=== PATIENT | female | born 1995 | race Caucasian/White ===

== ENCOUNTER 2020-08-16 09:03 | Emergency (ER) | payer OTHER, SELFPAY ==
--- NOTE | 2020-08-16 09:13 | PC.NURSE ---
in br to obtain ua spec.
--- NOTE | 2020-08-16 09:25 | ED.GENADULT ---
HPI - General Adult General Chief complaint: Urogenital-Female Stated complaint: UTI Time Seen by Provider: 08/16/20 09:19 Source: patient and RN notes reviewed Mode of arrival: ambulatory Limitations: no limitations History of Present Illness HPI narrative: 25-year-old female presents with urinary complaints for the past 5 days. Dysuria consist of right lower abdominal pain, burning, frequency, and urgency. Marisol reports she is 6months post and has been having urinary problems since giving vaginal childbirth, symptoms increased over the past 24 hours. No treatment.? Denies fever or chills. No significant pelvic pain. No vaginal discharge.? No concerns for STDs. Exacerbating factors urinating.? Denies hematuria or vaginal bleeding. Denies being , LMP.? No flank pain. Denies nausea and vomiting.? Tolerating liquids well.? Remains active. The patient reports she have not been diagnosed with COVID-19. The patient reports she is not waiting for the results of a COVID-19 lab test. The patient reports she do not have fever, chills, weakness, or fatigue. The patient reports she do not have a new or worsening cough or shortness of breath. Denies chest pain. The patient reports she do not have any rhinorrhea, congestion, sore throat, loss of taste, and diarrhea. Denies recent traveling. Denies concerns for COVID-19 or exposures been home with limited outdoor exposure except for essential household needs and return home. At this time, patient is not suspected of having COVID-19. Some parts of this dictation were generated by voice recognition software and may contain typographical and/or grammatical inaccuracies. Related Data Home Medications Medication Instructions Recorded Confirmed PNV,calcium [id number] acid tablet 08/16/20 [ Vitamin Plus Low Iron] levothyroxine 08/16/20 Allergies Allergy/AdvReac Type Severity Reaction Status Date / Time No Known Allergies Allergy Verified 10/15/14 13:35 Review of Systems Review of Systems: Narrative: CONSTITUTIONAL: Denies fever, chills, sweats. EYES: Denies visual changes, redness, discharge. ENT: Denies rhinorrhea, congestion, sore throat, otalgia. CARDIOVASCULAR: Denies chest pain, palpitations, edema. RESPIRATORY: Denies dyspnea, wheezing, cough. GASTROINTESTINAL: Complains of RLQ. Denies nausea, vomiting, diarrhea. GENITOURINARY: Complains of dysuria (burning, frequency, and urgency). Denies hematuria, abnormal discharge. SKIN: Denies rash or itching. MUSCULOSKELETAL: Denies acute back pain, joint pain, or myalgia. NEUROLOGIC: Denies numbness or focal weakness. PSYCHIATRIC: Denies anxiety or depression. All systems reviewed & are unremarkable except as noted in HPI and below. PMFSH Past Medical History Medical History (Updated 08/16/20 @ 09:33 by DIANDRA Haas) Hypothyroidism Normal vaginal delivery Surgical History Surgical History (Updated 08/16/20 @ 09:29 by DIANDRA Haas) No significant past surgical history Family History Family History (Updated 08/16/20 @ 09:30 by DIANDRA Haas) Father Hypertension Mother Hypertension Social History Social History (Updated 08/16/20 @ 09:30 by DIANDRA Haas) Smoking status: Former smoker Tobacco type: cigarettes Second hand tobacco smoke exposure: No Smoking end date: 08/18/18 Alcohol intake: current Alcohol use details: occasionally Substance use: never Living arrangements: with family Occupation/Education: unemployed Gender identity (if verbalized by the patient): Female Sexual Orientation (if Verbalized by the Patient): Straight or Heterosexual Comments At time of signature, agree with nurse past medical, surgical, social, and family history.? There is no relevant family history pertinent to the presenting complaint. Exam Narrative: Exam Narrative: GENERAL: This is a well-nourished, well-developed patient,
[2020-08-16 09:28] VITALS: BP 133/81; PULSE 62; RESP 16; TEMP 36.9; O2SAT 100
--- NOTE | 2020-08-16 10:02 | PC.NURSE ---
was in br at 0928 and was able to collect urine spec., was in br at 0948, dc at 0908
== END 2020-08-16 09:58 | disposition home or self-care (01) ==
PROVIDERS: Emergency Provider Nurse Practitioner Family; PCP Family Medicine
DX: R30.0 Dysuria (principal); E03.9 Hypothyroidism, unspecified; Z87.891 Personal history of nicotine dependence
CPT/HCPCS: 81003; 87077; 87086; 87088; 87186; 99203; G0463

== ENCOUNTER 2021-08-30 08:56 | Outpatient (CLI) | payer OTHER, SELFPAY ==
--- NOTE | 2021-08-30 11:00 | NEURO_ITS ---
Impression: # Complains of numbness and pain in both hands. # Normal nerve conduction study. # Normal needle/EMG exam. # Clinical correlation recommended. Nerve Conduction Studies Anti Sensory Summary Table Stim Site NR Peak (ms) P-T Amp (?V) Site1 Site2 Delta-P (ms) Dist (cm) Crispin (m/s) Left Median Anti Sensory (2-3nd Digit) Wrist 3.0 48.0 Wrist 2-3nd Digit 3.0 14.0 47 Wrist 2.9 53.7 Wrist 2-3nd Digit 3.0 14.0 47 Right Median Anti Sensory (2-3nd Digit) Wrist 2.8 37.7 Wrist 2-3nd Digit 2.8 14.0 50 Wrist 2.7 53.5 Wrist 2-3nd Digit 2.8 14.0 50 Left Radial Anti Sensory (Base 1st Digit) Wrist 2.1 17.1 Wrist Base 1st Digit 2.1 0.0 Right Radial Anti Sensory (Base 1st Digit) Wrist 2.2 10.3 Wrist Base 1st Digit 2.2 0.0 Left Ulnar Anti Sensory (5th Digit) Wrist 2.4 55.0 Wrist 5th Digit 2.4 14.0 58 Right Ulnar Anti Sensory (5th Digit) Wrist 2.2 33.6 Wrist 5th Digit 2.2 14.0 64 Motor Summary Table Stim Site NR Onset (ms) O-P Amp (mV) Site1 Site2 Delta-0 (ms) Dist (cm) Crispin (m/s) Left Median Motor (Abd Poll Brev) Wrist 3.0 2.9 Elbow Wrist 4.1 26.0 63 Elbow 7.1 5.2 Right Median Motor (Abd Poll Brev) Wrist 2.8 3.0 Elbow Wrist 4.2 27.0 64 Elbow 7.0 3.2 Left Ulnar Motor (Abd Dig Minimi) Wrist 2.5 6.6 A Elbow Wrist 4.8 29.0 60 A Elbow 7.3 5.3 Right Ulnar Motor (Abd Dig Minimi) Wrist 2.6 6.2 A Elbow Wrist 4.4 27.0 61 A Elbow 7.0 4.9 F Wave Studies NR F-Lat (ms) L-R F-Lat (ms) Left Median (Mrkrs) (Abd Poll Brev) 26.90 0.12 Right Median (Mrkrs) (Abd Poll Brev) 26.78 0.12 Left Ulnar (Mrkrs) (Abd Dig Min) 27.23 0.49 Right Ulnar (Mrkrs) (Abd Dig Min) 27.72 0.49 EMG Side Muscle Nerve Root Ins Act Fibs Amp Dur Recrt Comment Right 1stDorInt Ulnar C8-T1 Nml Nml Nml Nml Nml Right Ext Indicis Radial (Post Int) C7-8 Nml Nml Nml Nml Nml Right Ext Digitorum Radial (Post Int) C7-8 Nml Nml Nml Nml Nml Right BrachioRad Radial C5-6 Nml Nml Nml Nml Nml Right PronatorTeres Median C6-7 Nml Nml Nml Nml Nml Right Abd Poll Brev Median C8-T1 Nml Nml Nml Nml Nml Left 1stDorInt Ulnar C8-T1 Nml Nml Nml Nml Nml Left Ext Indicis Radial (Post Int) C7-8 Nml Nml Nml Nml Nml Left Ext Digitorum Radial (Post Int) C7-8 Nml Nml Nml Nml Nml Left BrachioRad Radial C5-6 Nml Nml Nml Nml Nml Left PronatorTeres Median C6-7 Nml Nml Nml Nml Nml Left Abd Poll Brev Median C8-T1 Nml Nml Nml Nml Nml MTDD
== END 2021-08-30 08:57 | disposition home or self-care (01) ==
LOC: ANHNEURO 08:59
PROVIDERS: PCP Family Medicine; Visit Provider Internal Medicine Gastroenterology
DX: R20.2 Paresthesia of skin (principal)
CPT/HCPCS: 95886; 95911

== ENCOUNTER 2022-05-01 08:16 | Emergency (ER) | payer OTHER, SELFPAY ==
[2022-05-01 08:30] VITALS: BP 126/82; PULSE 78; RESP 18; TEMP 37.2; O2SAT 100
--- NOTE | 2022-05-01 09:01 | ED.URI ---
HPI - URI/Sore Throat General Chief Complaint: Upper Respiratory Infection Stated Complaint: sore throat Time Seen by Provider: 05/01/22 09:01 Source: RN notes reviewed and old records reviewed Mode of arrival: ambulatory Limitations: no limitations History of Present Illness HPI Narrative: 27-year-old female presents to [facility] care with complaints of sinus congestion and drainage since weekend with complaints of sore throat since yesterday. Patient reports she has been taking [place] cold and flu, allergy medicine and also some nasal spray. She reports that her daughter has been sick and was diagnosed with sinus infection yesterday placed on antibiotics. 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 MD elicited complaint: sore throat Pertinent past history: other (strep throat history) Onset (ago): day(s) (1) Treatments prior to arrival: cold medicine and other (sinus medication and also nasal spray) Related Data Home Medications Medication Instructions Recorded Confirmed levothyroxine 75 mcg tablet 08/16/20 Allergies Allergy/AdvReac Type Severity Reaction Status Date / Time No Known Allergies Allergy Verified 05/01/22 08:35 Review of Systems Review of Systems: CONSTITUTIONAL: Denies fever, chills, or sweats. EYES: Denies visual changes, redness, or discharge. ENT: Positive rhinorrhea, congestion, sore throat, no otalgia. CARDIOVASCULAR: Denies chest pain, palpitations, or edema. RESPIRATORY: Denies cough or dyspnea. GASTROINTESTINAL: Denies abdominal pain, nausea, vomiting, or diarrhea. GENITOURINARY: Denies dysuria or hematuria. SKIN: Denies rash or itching. MUSCULOSKELETAL: Denies back pain, joint pain, positive body aches NEUROLOGIC: Denies headache, numbness, or weakness. PSYCHIATRIC: Positive history anxiety or depression. All systems reviewed & are unremarkable except as noted in HPI and below PMFSH Past Medical History Medical History Hypothyroidism Normal vaginal delivery Surgical History Surgical History No significant past surgical history Family History Family History Father Hypertension Mother Hypertension Social History Social History (Reviewed 05/01/22 @ 09:02 by GWEN Love Smoking status: Former smoker Tobacco type: cigarettes Second hand tobacco smoke exposure: No Smoking end date: 08/18/18 Alcohol intake: current Alcohol use details: occasionally Substance use: never Gender identity (if verbalized by the patient): Female Sexual Orientation (if Verbalized by the Patient): Straight or Heterosexual Comments At time of signature, agree with nursing past medical, surgical, social and family history. There is no relevant family history pertinent to the presenting complaint Exam Narrative: GENERAL: ill-appearing, well-nourished, and in no acute distress. HEAD: Normocephalic, atraumatic. EYES: PERRLA and EOMI. ENT: Nares red with clear rhinorrhea no epistaxis. Mucous membranes moist. TMs normal with good light reflex throat red with tonsils swollen and red uvula red and swollen painful swallowing NECK: Supple. Lymphadenopathy CHEST: Clear to auscultation. No respiratory distress. SaO2 100% on room air HEART: Regular rate and rhythm. No murmur heard. Normal peripheral pulses. ABDOMEN: Soft, nontender, nondistended, normal active bowel sounds. EXTREMITIES: Normal range of motion. No edema. SKIN: Warm, dry, no rash. NEURO: No focal deficits. Alert and oriented x3. Course Course Level of Care: Express Care Visit Vital Signs Vital signs: Vital Signs Temperature 37.2 C 05/01/22 08:30 Pulse Rate 78 05/01/22 08:30 Respiratory Rate 18 05/01/22 08:30 Blood Pressure 126/82 05/01/22 08:30 Pulse Oximetry 100 05/01/22 08:30 Oxygen Del
== END 2022-05-01 09:22 | disposition home or self-care (01) ==
PROVIDERS: Emergency Provider Registered Nurse
DX: J03.90 Acute tonsillitis, unspecified (principal); E03.9 Hypothyroidism, unspecified
CPT/HCPCS: 99213; G0463

== ENCOUNTER 2022-05-24 16:34 | Emergency (ER) | payer OTHER, SELFPAY ==
--- NOTE | ~2022-05-24 | XR_ITS ---
EXAMINATION: XR chest 2V 05/24/2022 17:33 INDICATION: Productive cough PROCEDURE: 2 view chest COMPARISON: No prior studies for comparison. FINDINGS: The lungs are clear. The cardiomediastinal silhouette is within normal limits. There are no pleural effusions. There is no pneumothorax suspected. IMPRESSION: 1: NO ACUTE CARDIOPULMONARY DISEASE. Reviewed, dictated and finalized at location A.
--- NOTE | 2022-05-24 16:36 | ED.GENADULT ---
HPI - General Adult General Chief complaint: Upper Respiratory Infection Stated complaint: SOB Time Seen by Provider: 05/24/22 17:06 Source: patient and RN notes reviewed Mode of arrival: ambulatory Limitations: no limitations History of Present Illness HPI narrative: 27-year-old female presents to the [facility] with complaints of shortness of breath. States that it feels like her normal allergy issues. Has been using her albuterol with no improvement. Denies fevers. Denies any chest pain, abdominal pain, nausea, vomiting. Related Data Home Medications Medication Instructions Recorded Confirmed levothyroxine 75 mcg tablet 08/16/20 albuterol sulfate 90 mcg/actuation inhalation 05/24/22 aerosol inhaler Allergies Allergy/AdvReac Type Severity Reaction Status Date / Time No Known Allergies Allergy Verified 05/01/22 08:35 Review of Systems Review of Systems: All systems reviewed & are unremarkable except as noted in HPI and below Constitutional: Constitutional: Reports no additional constitutional complaints, Denies chills and Denies fever(s) Eyes: Eyes: Reports no additional eye complaints ENT: Reports system reviewed and no additional complaints, except as documented Cardiovascular: Cardiovascular: Reports no additional cardiovascular complaints Respiratory: Respiratory: Reports as per HPI, Reports no additional respiratory complaints, Reports cough and Reports dyspnea Gastrointestinal: Gastrointestinal: Reports no additional gastrointestinal complaints Musculoskeletal: Musculoskeletal: Reports no additional musculoskeletal complaints Integumentary/Breasts: Skin/Breast: Reports system reviewed and no additional complaints, except as docu Neurologic: Reports system reviewed and no additional complaints, except as documented Psychiatric: Psychiatric: Reports no additional psychiatric complaints Allergic/Immunologic: Allergic/Immunologic: Reports no additional allergic/immunologic complaints [facility] Past Medical History Medical History Hypothyroidism Normal vaginal delivery Surgical History Surgical History No significant past surgical history Family History Family History Father Hypertension Mother Hypertension Social History Social History Smoking status: Former smoker Tobacco type: cigarettes Second hand tobacco smoke exposure: No Smoking end date: 08/18/18 Alcohol intake: current Alcohol use details: occasionally Substance use: never Gender identity (if verbalized by the patient): Female Sexual Orientation (if Verbalized by the Patient): Straight or Heterosexual Comments At the time of my signature, I reviewed and agree with the nursing past medical, surgical, social, and family history. There is no relevant family history pertinent to the patient complaint. Exam Const: General: healthy appearing, no acute distress, alert and well nourished Nutritional Appearance: well nourished Orientation/consciousness: patient oriented x3 Limitations: no limitations HENMT: Head: normal to inspection Ears: external ears normal Eyes: General: appearance normal, both eyes and all related structures Pupils: Equal, round and reactive pupils present Neck: Neck: normal visual inspection, no lymphadenopathy and no meningeal signs Chest: Chest palpation & inspection: normal inspection of the chest Resp: Effort & Inspection: normal respiratory effort and no use of accessory muscles Auscultation: clear to auscultation bilaterally, no crackles, no rales, no rhonchi and no wheezes Cardio: Rate: regular rate Rhythm: regular rhythm Skin: General skin exam: normal color Rashes: no rashes Wounds: no wounds Neuro: General: patient oriented x3, moves all extrem
[2022-05-24 16:55] VITALS: BP 117/89; PULSE 100; RESP 20; TEMP 37.1; O2SAT 100
== END 2022-05-24 18:05 | disposition home or self-care (01) ==
PROVIDERS: Emergency Provider Nurse Practitioner; PCP Family Medicine
DX: J40 Bronchitis, not specified as acute or chronic (principal); Z87.891 Personal history of nicotine dependence; E03.9 Hypothyroidism, unspecified
CPT/HCPCS: 71046; 99213; G0463

== ENCOUNTER 2023-02-11 18:49 | Emergency (ER) | payer OTHER, SELFPAY ==
[2023-02-11 19:02] VITALS: BP 126/81; PULSE 84; RESP 16; TEMP 36.6; O2SAT 100
--- NOTE | 2023-02-11 19:50 | ED.URI ---
HPI - URI/Sore Throat General Chief Complaint: Upper Respiratory Infection Stated Complaint: Throat/Abdominal Pain/Bodyaches Time Seen by Provider: 02/11/23 19:45 Source: patient, RN notes reviewed and old records reviewed Mode of arrival: ambulatory Limitations: no limitations History of Present Illness HPI Narrative: 28 year old female who presents to [facility] care with complaints of upper mid abdominal pain, nausea,body aches and swollen sore throat which started today.Patient denies any vomiting or diarrhea or any known temperatures. She reports that throat is sore and swollen rates her pain a 6/10, denies any difficulty with her breathing or inability to swallow. Patient reports that she has taken some Vitamin C. MD elicited complaint: sore throat, rhinorrhea, nasal congestion and other (nausea and upper mid abdominal pain) Pertinent past history: other (strep throat) Onset (ago): day(s) (1) Pain scale (0-10): 6 Able to tolerate fluids by mouth: Yes Exacerbating factors: swallowing Treatments prior to arrival: other (vitamin C) Related Data Home Medications Medication Instructions Recorded Confirmed levothyroxine 75 mcg tablet 08/16/20 dextroamphetamine-amphetamine 10 02/11/23 mg tablet gabapentin 100 mg capsule mg 02/11/23 02/11/23 Allergies Allergy/AdvReac Type Severity Reaction Status Date / Time escitalopram [From Lexapro] Allergy Itching Verified 02/11/23 19:11 Review of Systems Review of Systems: CONSTITUTIONAL: Denies malaise, chills, sweats, or fever. EYES: Denies visual changes, redness, or discharge. ENT: Reports rhinorrhea, congestion, sinus pain, no otalgia positive sore throat. CARDIOVASCULAR: Denies chest pain, palpitations, or edema. RESPIRATORY: Reports no cough.? Denies dyspnea. GASTROINTESTINAL: mid upper abdominal pain, nausea, no vomiting,no diarrhea SKIN: Denies rash or itching. MUSCULOSKELETAL:Reports myalgia. NEUROLOGIC: Denies headache. All systems reviewed & are unremarkable except as noted in HPI and below PMFSH Past Medical History Medical History (Updated 02/12/23 @ 07:00 by Malorie Apodaca NP) ADHD, adult residual type Hypothyroidism Normal vaginal delivery Surgical History Surgical History No significant past surgical history Family History Family History Father Hypertension Mother Hypertension Social History Social History (Updated 02/12/23 @ 07:01 by Malorie Apodaca NP) Smoking status: Current every day smoker Tobacco type: e-cigarettes/vaping Second hand tobacco smoke exposure: No Alcohol intake: current Alcohol use details: occasionally Substance use: never Living arrangements: with family Occupation/Education: unemployed Gender identity (if verbalized by the patient): Female Sexual Orientation (if Verbalized by the Patient): Straight or Heterosexual Comments At time of signature, agree with nursing past medical, surgical, social and family history. There is no relevant family history pertinent to the presenting complaint Exam Narrative: GENERAL: Well-appearing, well-nourished, and in no acute distress. HEAD: Normocephalic EYES: PERRLA, conjunctivae clear ENT: Nares clear, turbinates edematous and erythematous, clear discharge. Mucous membranes moist. TM pearly adair with dull light reflex bilaterally; no tragal tenderness. Oropharynx erythematous without lesions. Tonsils red enlarged and without exudate, no drooling, no hoarseness, no trismus, uvula midline.post nasal discharge NECK: Supple. No lymphadenopathy CHEST: Clear to auscultation, breath sounds equal. No wheezing, rhonchi, rales, or stridor. No respiratory distress, speaks in full sentences.SAO2 100% on room air HEART: Regular rate and rhythm. No murmur heard. SKIN: Warm, dry, no rash. NEURO: Alert and oriented x3. P
== END 2023-02-11 20:05 | disposition home or self-care (01) ==
PROVIDERS: Emergency Provider Registered Nurse; PCP Family Medicine
DX: J03.90 Acute tonsillitis, unspecified (principal); F17.290 Nicotine dependence, other tobacco product, uncomplicated; E03.9 Hypothyroidism, unspecified
CPT/HCPCS: 87081; 87880; 99213; G0463

== ENCOUNTER 2023-05-28 18:52 | Emergency (ER) | payer OTHER, SELFPAY ==
--- NOTE | ~2023-05-28 | US_ITS ---
EXAMINATION: US OB follow up DATE: 05/28/2023 21:47 INDICATION: Lower abdominal cramping and bleeding of fluid during second trimester TECHNIQUE: Real-time ultrasound of the pelvis was performed. The interpreting radiologist was not pre sent for the study. COMPARISON: None. FINDINGS: There is a single living fetus in vertex presentation. The placenta is posterior. car diac activity and movement are noted. heart rate is 153 beats per minute (bpm). The amnio tic fluid index is 9.9 cm which is normal (normal range: 9.0 cm to 20.7 cm). The following biometric data were obtained: Biparietal diameter (BPD): 4.3 cm; head circumference (HC): 15.8 cm; abdominal circumference (AC): 13 .1 cm; femur length (FL): 3.0 cm. These measurements are concordant. Estimated weight is 263 g +/- 39 g, which correlates with the 40th percentile when 10/22/2023 is used as estimated date of delivery. As single measurements, these parameters are each equal to the following estimated gestational ages w ith ranges of +/- 2 standard deviations: BPD: 18 weeks 6 days +/- 1 weeks 5 days. HC: 18 weeks 5 days +/- 1 weeks 3 days. AC: 18 weeks 5 days +/- 2 weeks 0 days. FL: 19 weeks 2 days +/- 1 weeks 6 days. estimated gestational age based solely on measurements from this exam is 18 weeks 6 days +/- 1 weeks 2 days. IMPRESSION: 1. Single living fetus in vertex presentation. 2. Amniotic fluid index is 9.9 cm which is normal (normal range: 9.0 cm to 20.7 cm). 3. Estimated weight is 263 g +/- 39 g, which correlates with the 40th percentile when 10/22/2023 is used as estimated date of delivery. Reviewed, dictated and finalized at location F. IMPRESSION: 1. Single living fetus in vertex presentation. 2. Amniotic fluid index is 9.9 cm which is normal (normal range: 9.0 cm to 20.7 cm). 3. Estimated weight is 263 g +/- 39 g, which correlates with the 40th per centile when 10/22/2023 is used as estimated date of delivery.
[2023-05-28 19:00] VITALS: BP 123/85; PULSE 83; RESP 16; TEMP 36.7; O2SAT 100
--- NOTE | 2023-05-28 19:10 | PC.NURSE ---
Assumed care of pt. Report from MIGUE Muñoz. Awaiting ERP. Pt stable at this time.
--- NOTE | 2023-05-28 19:37 | ED.GENADULT ---
HPI - General Adult General Chief complaint: Unspecified Stated complaint: 19 weeks preg/leaking fluid Time Seen by Provider: 05/28/23 19:09 Source: patient Mode of arrival: ambulatory Limitations: no limitations History of Present Illness HPI narrative: Patient is a 28 y/o female who presents to the ED with c/o leaking fluid. Patient is and currently 19 weeks gestation. Patient reports she has been intermittently leaking fluid from her vagina since last . She notes that she was extremely stressed out on and noticed a small amount of clear fluid afterwards. She has had 3 episodes of this so far. Today, there was an increased amount of fluid, to the point that she states she leaked through her underwear and pants. She was referred here for further evaluation. Patient was evaluated by her BARGE PILOT, Dr. Johnson, in the office on Friday and had a normal ultrasound in which the amniotic fluid was WNL. She does also report intermittent diffuse lower abdominal cramping. Denies fevers, dysuria, hematuria, vaginal bleeding. Related Data Home Medications Medication Instructions Recorded Confirmed levothyroxine 75 mcg tablet 08/16/20 dextroamphetamine-amphetamine 10 02/11/23 mg tablet gabapentin 100 mg capsule mg 02/11/23 02/11/23 Allergies Allergy/AdvReac Type Severity Reaction Status Date / Time escitalopram [From Lexapro] Allergy Itching Verified 02/11/23 19:11 Review of Systems Review of Systems: CONSTITUTIONAL: Denies fever, chills, or sweats. CARDIOVASCULAR: Denies chest pain. RESPIRATORY: Denies dyspnea. GASTROINTESTINAL: See HPI. GENITOURINARY: See HPI. SKIN: Denies rash or itching. MUSCULOSKELETAL: Denies back pain, joint pain, or myalgia. All systems reviewed & are unremarkable except as noted in HPI and below PMFSH Past Medical History Medical History ADHD, adult residual type Hypothyroidism Normal vaginal delivery Surgical History Surgical History No significant past surgical history Family History Family History Father Hypertension Mother Hypertension Social History Social History Smoking status: Current every day smoker Tobacco type: e-cigarettes/vaping Second hand tobacco smoke exposure: No Alcohol intake: current Alcohol use details: occasionally Substance use: never Living arrangements: with family Occupation/Education: unemployed Gender identity (if verbalized by the patient): Female Sexual Orientation (if Verbalized by the Patient): Straight or Heterosexual Exam Narrative: GENERAL: Well appearing, well-nourished, non-toxic, in no acute distress. HEAD: Normocephalic, atraumatic. NECK: Supple. No adenopathy, no masses. RESPIRATORY: Airway patent, respirations nonlabored. Clear to auscultation bilaterally, no rales, rhonchi, wheezing. CARDIOVASCULAR: Regular rate and rhythm without murmurs, rubs, or gallops. Peripheral pulses 2+ and equal bilaterally. ABDOMINAL: Soft, uterus gravid just below umbilicus, no significant tenderness throughout lower abdomen, nondistended, no hepatosplenomegaly. Normoactive BS. MUSCULOSKELETAL: Moves all extremities. Strength/ROM intact without gross deformities. SKIN: Warm, dry, normal color. No rashes. NEURO: A&O X3. Speech clear. Cranial nerves II-XII grossly intact. Steady gait. No ataxic movements. PSYCHIATRIC: Appropriate mood and affect. Normal interaction. Course Vital Signs Vital signs: Vital Signs Temperature 98.1 F 05/28/23 19:00 Pulse Rate 83 05/28/23 19:00 Respiratory Rate 16 05/28/23 19:00 Blood Pressure 123/85 05/28/23 19:00 Pulse Oximetry 100 05/28/23 19:00 Oxygen Delivery Room Air 05/28/23 19:00 Temperature 98.1 F
--- NOTE | 2023-05-28 20:06 | PC.NURSE ---
OB at bedside.
[2023-05-28 20:36] VITALS: O2SAT 98
[2023-05-28 20:37] VITALS: BP 123/78; O2SAT 98
[2023-05-28 20:37] LABS: Basophils Percent Auto 0.3 % (0.2-1.2); Eosinophils Absolute Auto 0.1 K/mm3 (0-0.3); Eosinophils Percent Auto 0.7 % (0-4.4); Hematocrit 30.7 % (37.0-47.0); Hemoglobin 10.4 g/dL (12.0-15.0); Immature Granulocyte Absolute 0.04 K/mm3 (0.00-0.031); Immature Granulocyte Percent A 0.4 % (0-0.5); Lymphocytes Percent Auto 29.9 % (18.3-44.2); Mean Corpuscular HGB Conc 33.9 g/dl (32-36); Mean Corpuscular Hemoglobin 30.6 pg (26-34); Mean Corpuscular Volume 90.3 fl (80-100); Monocytes Absolute Auto 0.5 K/mm3 (0.1-0.6); Monocytes Percent Auto 5.6 % (2.6-8.5); Neutrophils Absolute Auto 5.9 K/mm3 (1.3-6.7); Neutrophils Percent Auto 63.1 % (45.5-73.1); Platelet Count Result 279 k/mm3 (150-375); Red Cell Distribution Width 12.7 % (11.5-14.5); White Blood Count 9.4 K/mm3 (4.5-10.0)
[2023-05-28 20:41] LABS: Appearance Urine Turbid (Clear); Bacteria Urine None Seen /hpf; Bilirubin Urine Negative (Negative); Blood Urine Negative (Negative); Color Urine Yellow (Yellow); Glucose Urine UA Negative (Negative); Ketones Urine Negative (Negative); Leukocyte Esterase Ur Negative LEU/UL (Negative); Nitrate Urine Negative (Negative); Non Pathogenic Casts 0-2; Protein Urine Negative (Negative); RBC Urine 0-2 /hpf (0-2); Specific Grav Ur 1.016 (1.001-1.035); Squamous Epithelial Cell Urine None seen /hpf (Few); Urobilinogen Urine 0.2 mg/dL (<2.0); WBC Urine 0-5 /hpf; pH Urine 6.5 (5.0-9.0)
[2023-05-28 20:43] LABS: Add Urine Microscopic? YES
[2023-05-28 20:46] LABS: Alanine Aminotransferase 12 U/L (6-35); Albumin Level 3.6 g/dL (3.5-5.1); Alkaline Phosphatase 42 U/L (38-126); Anion Gap 6 mmol/L (8-16); Aspartate Amino Transferase 20 U/L (14-36); Bilirubin,Total 0.3 mg/dL (0.2-1.3); Blood Urea Nitrogen 12 mg/dL (7-17); Calcium 9.2 mg/dL (8.4-10.2); Carbon Dioxide 23 mmol/L (22-30); Chloride 104 mmol/L (98-107); Estimated CRCL calculation 118 ml/min; Estimated Glomerular Filt Rate > 60; Glucose 100 mg/dL (65-110); Potassium 3.6 mmol/L (3.4-5.0); Sodium 133 mmol/L (137-145)
[2023-05-28 20:49] VITALS: O2SAT 98
[2023-05-28 22:39] VITALS: BP 124/74; PULSE 78; RESP 16; O2SAT 99
== END 2023-05-28 22:40 | disposition home or self-care (01) ==
PROVIDERS: Emergency Provider Physician Assistant; PCP Family Medicine
DX: O99.891 Other specified diseases and conditions complicating pregnancy (principal); N89.8 Other specified noninflammatory disorders of vagina; O99.282 Endocrine, nutritional and metabolic diseases complicating pregnancy, second trimester; E03.9 Hypothyroidism, unspecified; O99.342 Other mental disorders complicating pregnancy, second trimester; F90.8 Attention-deficit hyperactivity disorder, other type; Z3A.19 19 weeks gestation of pregnancy
CPT/HCPCS: 36415; 76816; 80053; 81001; 85025; 99284

== ENCOUNTER 2025-05-04 10:30 | Emergency (ER) | payer OTHER, SELFPAY ==
--- NOTE | 2025-05-04 10:33 | ED_ITS ---
HPI - Female Genitourinary General Chief complaint: Urogenital-Female Stated complaint: UTI/Sinus Time Seen by Provider: 05/04/25 10:35 Source: patient Mode of arrival: ambulatory Limitations: no limitations History of Present Illness HPI Narrative: Patient is a 30-year-old female who presents with frequency and burning with urination for 1 day. Also reports left lower pressure and cramping. Patient has history of ovarian cysts. States she has taken Tylenol and naproxen with no relief. Is currently and has a [id number]-van home. Denies any fever, chills, nausea, vomiting, diarrhea MD elicited complaint: dysuria Related Data Home Medications ?Medication ?Instructions ?Recorded ?Confirmed ?Last Taken ?Type levothyroxine 75 mcg tablet 75 mcg 08/16/20 Unknown H istory Allergies Allergy/AdvReac Type Severity Reaction Status Date / Time escitalopram (From Lexapro) Allergy Itching Verified 05/04/25 11:12 adhesive AdvReac Mild itching Verified 05/04/25 11:12 Review of Systems Review of Systems: All systems reviewed & are unremarkable except as noted in HPI and below Constitutional: Constitutional: Denies chills, Denies fever(s), Denies headache(s), Denies malaise and Denies weakness Eyes: Eyes: Denies change in vision, Denies eye discharge and Denies irritation ENT: Denies otalgia, Denies headache(s), Denies nasal congestion, Denies nasal discharge, Denies sinus pain and Denies sore throat Cardiovascular: Cardiovascular: Denies chest pain, Denies edema, Denies palpitations and Denies dyspnea Respiratory: Respiratory: Denies cough and Denies dyspnea Gastrointestinal: Gastrointestinal: Denies abdominal pain, Denies diarrhea, Denies nausea and Denies vomiting Genitourinary: Genitourinary: Denies hematuria, Reports nocturia, Reports dysuria, Denies flank pain and Reports urinary urgency Musculoskeletal: Musculoskeletal: Denies back pain and Denies numbness Integumentary/Breasts: Skin/Breast: Denies pruritus and Denies rash Neurologic: Denies headache(s), Denies numbness and Denies weakness Psychiatric: Psychiatric: Reports no additional psychiatric complaints Endocrine: Endocrine: Denies palpitations PMFSH Past Medical History Medical History ADHD, adult residual type Hypothyroidism Normal vaginal delivery Surgical History Surgical History No significant past surgical history Family History Family History Father Hypertension Mother Hypertension Social History Social History Smoking status: Current every day smoker Tobacco type: e-cigarettes/vaping Second hand tobacco smoke exposure: No Alcohol intake: current Alcohol use details: occasionally Substance use: never Living arrangements: with family Occupation/Education: unemployed Gender identity (if verbalized by the patient): Female Sexual Orientation (if Verbalized by the Patient): Straight or Heterosexual Comments At time of signature, agree with nursing past medical, surgical, social and family history. There is no relevant family history pertinent to the presenting complaint. Exam Const: General: cooperative, healthy appearing, comfortable, no acute distress and well nourished Nutritional Appearance: well nourished Orientation/consciousness: patient oriented x3 HENMT: Head: normocephalic and atraumatic Ears: external ears normal Face/Nose/Sinus: Normal external nose present, Normal nares present and normal facial exam Face and sinus: normal facial exam Eyes: General: appearance normal, both eyes and all related structures Pupils: Equal, round and reactive pupils present EOM: EOMs intact bilaterally Neck: Neck: normal visual inspection, full ROM and supple Chest: Chest palpation & inspection: normal inspection of the chest Resp: Effort & Inspection: normal respiratory effort and able to speak in complete sentences Cardio: Rate: regular rate Rhythm: regular rhythm GI: Inspection: normal to inspection GI Palp: No abdominal tenderness and Yes Soft to palpation : General: Yes no CVA tenderness Back/Spine/Pelvis: Back: no CVA tenderness Skin: General skin exam: normal color and no rashes or lesions noted Neuro: General: patient oriented x3 and moves all extremities Cranial nerves: Yes Equal, round and reactive pupils present Extrem: General: normal to inspection and full ROM Psych: Appearance: grossly normal and well kempt Course Course Emergency Course: Patient is aware of diagnosis, understands and agrees to treatment plan. Anticipatory guidance given. Patient agrees to follow-up as directed and is aware of reasons to seek care at the emergency department. Portions of this record may have been created with voice recognition software Level of Care: Express Care Visit Vital Signs Vital signs: Vital Signs Temperature 36.6 C 05/04/25 10:39 Pulse Rate 73 05/04/25 10:39 Respiratory Rate 18 05/04/25 10:39 Blood Pressure 105/74 05/04/25 10:39 Pulse Oximetry 100 05/04/25 10:39 Oxygen Delivery Room Air 05/04/25 10:39 Temperature 36.6 C 05/04/25 10:39 Pulse Rate 73 05/04/25 10:39 Respiratory Rate 18 05/04/25 10:39 Blood Pressure 105/74 05/04/25 10:39 Pulse Oximetry 100 05/04/25 10:39 Oxygen Delivery Room Air 05/04/25 10:39 Reviewed MDM - Female Genitourinary MDM Narrative Medical decision making narrative: Exam findings consistent with UTI; patient is non-toxic appearing and is in no distress. No CMT, adnexal tenderness, or evidence of pelvic etiology. Patient is appropriate for outpatient treatment and follow-up. Differential Diagnosis Differential diagnosis: Likely urinary tract infection, bacterial vaginosis, trichomoniasis, cervicitis, vaginitis and cystitis Medical Records Attestation: I reviewed the patient's medical records. Lab Data Attestation: I reviewed the patient's lab results. Labs: Lab Results 05/04/25 05/04/25 05/04/25 Range/Units 10:43 11:15 11:34 POC Urine Color Dark POC Urine Clarity Clear POC Urine pH 6.0 POC Ur Specif Mccarr 1.025 POC Urine Protein 1+ (Negative) POC Ur Glucose (UA) Negative (Negative) POC Urine Ketones Negative (Negative) POC Urine Blood 1+ (Negative) POC Urine Nitrite Negative (Negative) POC Urine Bilirubin Negative (Negative) POC Urine Urobilinogen 0.2 POC U Leukocyte Esteras Negative (Negative) POC Urine HCG, Qual Negative Negative (Negative) Discharge Plan Discharge Clinical Impression: Urinary urgency, Dysuria Patient Disposition: Home Condition: Stable Instructions: Dysuria (ED) Additional Instructions: We will send a urine culture to the lab, based on your symptoms we will start treatment today. If culture comes back and bacteria is not susceptible to antibiotic, your prescription may change. Your symptoms should improve within a day of starting antibiotics, but you should finish all the antibiotic pills you get. Otherwise your infection might come back Continue with increased water intake. Take Tylenol or ibuprofen as needed for pain or fever. Follow-up with primary care provider for urine recheck or see ER visit if condition worsens with high fever, nausea, vomiting, severe back pain. Go to the emergency department if you have worsening abdominal pain. Patient Language: Chinese Prescriptions: New cephalexin 500 mg capsule 500 mg PO Q12H 5 Days Qty: 10 0RF No Action levothyroxine 75 mcg tablet 75 mcg Follow-up/Referrals: Regan,Radha Hall MD [Primary Care Provider] - 3 Days Stand Alone Forms: Work/School Release IP Time of Disposition: 11:26
[2025-05-04 10:39] VITALS: BP 105/74; PULSE 73; RESP 18; TEMP 36.6; O2SAT 100
[2025-05-04 10:46] LABS: EDUAAPPEAR Clear; EDUABILI Negative (Negative); EDUABLOOD 1+ (Negative); EDUACOLOR1 Dark; EDUAGLUCOSE Negative (Negative); EDUAKETONE Negative (Negative); EDUALEUKO Negative (Negative); EDUANITRATE Negative (Negative); EDUAPH 6.0; EDUAPROTEIN 1+ (Negative); EDUASPGRAVITY 1.025; EDUAUROBILI 0.2
[2025-05-04 11:17] LABS: BEDSIDEPREGUCG Negative (Negative)
[2025-05-04 11:36] LABS: BEDSIDEPREGUCG Negative (Negative)
== END 2025-05-04 11:36 | disposition home or self-care (01) ==
PROVIDERS: Emergency Provider Nurse Practitioner Family; PCP Family Medicine
DX: R39.15 Urgency of urination (principal); R30.0 Dysuria; F17.290 Nicotine dependence, other tobacco product, uncomplicated; E03.9 Hypothyroidism, unspecified
CPT/HCPCS: 81003; 81025; 87086; 99213; G0463